=== PATIENT | male | born 1995 | race Caucasian/White ===

== ENCOUNTER 2017-05-16 14:42 | Emergency (ER) ==
[2017-05-16 14:45] VITALS: BP 136/49; TEMP 97.7; BMI 35.2
[2017-05-16] MEDS ORDERED: TORADOL IM STA (14:54)
--- NOTE | 2017-05-16 15:26 | CT ---
Exam: CT of the pelvis without intravenous contrast. Comparison: Abdomen x-ray performed on 03/02/2015. Reason for exam: Pain. FINDINGS: Image interpretation is somewhat limited by the lack of intravenous contrast. The appendix is been removed. No inflammatory changes are seen within the pelvic fat. There is no pelvic free fluid or intra-abdominal free air. The osseous structures are unremarkable. There are bilateral enlarged femoral lymph nodes measuring up to 1.5 cm in the short axis. Inflamma tory changes are seen in the subcutaneous fat of the left groin on axial image number 49. Impression: 1. Focus of subcutaneous inflammation/infiltration in the left groin on axial image number 49 . Rec ommend direct visualization for correlation. 2. Enlarged femoral lymph nodes measuring up to 1.5 cm. 3. The osseous structures are unremarkable. Imaging findings were discussed directly with the ordering physician at 1522 hours on 05/12/2017.
--- NOTE | 2017-05-16 15:38 | US ---
EXAM: Ultrasound venous Doppler unilateral lower extremity HISTORY: Pain and tenderness, redness COMPARISON: None TECHNIQUE: Venous duplex ultrasound of the right lower extremity was performed using color, harp-sc gregg, and Doppler flow imaging. FINDINGS: There is normal color flow and harp scale appearance of the right common femoral, greater saphenous, profunda femoral, femoral, popliteal, peroneal, posterior tibial, and anterior tibial ve ins without evidence of intraluminal thrombus. Compression and augmentation is normal. IMPRESSION: No right lower extremity deep venous thrombosis.
--- NOTE | 2017-05-16 16:30 | ED.PDOC ---
General ED Provider: Dr. 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 Denies: Swelling, Bruising, Fever, Weakness, Dizziness, Syncope, Abdominal pain, Knee pain Related History: Reports: Similar episode Able to Bear Weight: Yes Septic Arthritis Risk Factors: Reports: None Related Surgical History: Reports: None Tenderness: Present: Right (groin) Differential Diagnoses: Arthritis, Sprain, Strain, Other (insect bite) Review of Systems - Review Of Systems Constitutional: Reports: No symptoms Eyes: Reports: No symptoms Ears, Nose, Mouth, Throat: Reports: No symptoms Respiratory: Reports: No symptoms Cardiac: Reports: No symptoms GI: Reports: No symptoms : Reports: No symptoms Musculoskeletal: Reports: Other (right groin pain) Skin: Reports: No symptoms Neurological: Reports: No symptoms Endocrine: Reports: No symptoms Hematologic/Lymphatic: Reports: No symptoms All Other Systems: Reviewed and Negative Past Medical History - Past Medical History Previously Healthy: Yes Endocrine: Reports: None Cardiovascular: Reports: None Respiratory: Reports: None Hematological: Reports: None Gastrointestinal: Reports: None Genitourinary: Reports: None Neuro/Psych: Reports: None Musculoskeletal: Reports: None Cancer: Reports: None - Surgical History General Surgical History: Reports: None - Family History Family History: Reports: None - Social History Smoking Status: Never smoker Hx Substance Use: No Alcohol Screening: None Physical Exam - Physical Exam Appearance: Well-appearing, No pain distress, Well-nourished Eyes: ARACELI, EOMI, Conjunctiva clear ENT: Ears normal, Nose normal, Oropharynx normal Respiratory: Airway patent, Breath sounds clear, Breath sounds equal, Respirations nonlabored Cardiovascular: RRR, Pulses normal, No rub, No murmur GI/: Soft, Nontender, No masses, Bowel sounds normal, No Organomegaly Musculoskeletal: Normal strength (please refer to photos from same area ), ROM intact Skin: Warm, Dry, Normal color Neurological: Sensation intact, Motor intact, Reflexes intact, Cranial nerves intact, Alert, Oriented Psychiatric: Affect appropriate, Mood appropriate Critical Care Note - Critical Care Note Total Time (mins): 0 Course - Course Orders, Labs, Meds: Orders Category Date Time Status Ketorolac Tromethamine [Toradol] MEDS 05/16/17 14:54 Discontinued 60 mg IM ONCE STA CT PELVIS W/O CONTRAST Stat RADS 05/16/17 14:53 Completed U/S VENOUS SCAN RT. LEG Stat RADS 05/16/17 14:53 Completed Medications Discontinued Medications Generic Name Dose Route Start Last Admin Trade Name Freq PRN Reason Stop Dose Admin Ketorolac Tromethamine 60 mg 05/16/17 14:54 05/16/17 15:26 Toradol IM 05/16/17 14:55 60 mg ONCE STA Administration Vital Signs: Temp Pulse Resp BP Pulse Ox 05/16/17 14:43 97.7 F 65 18 136/49 L 96 Departure - Departure Time of Disposition: 16:31 (with billy at bedside explained to pt/family hat pt has some enlarged nodes on the left side since left side .pt must follow up with [facility]) Disposition: HOME SELF-CARE Discharge Problem: Right groin pain Instructions: Groin Pain (ED) Condition: Good Pt referred to PMD for follow-up: No Additional Instructions: Please call your Family Physician as soon as possible to schedule a follow-up appointment. Allergies/Adverse Reactions: Allergies No Known Allergies Allergy (Verified 05/16/17 14:45) Home Medications: Ambulatory Orders 1 [No Reported Medications] 03/02/15
== END 2017-05-16 16:40 | disposition home or self-care (01) ==
LOC: ED 14:42
DX: R10.31 Right lower quadrant pain (principal); R59.0 Localized enlarged lymph nodes
CPT/HCPCS: 96372; 99282

== ENCOUNTER 2017-05-26 21:01 | Emergency (ER) ==
[2017-05-26 21:14] VITALS: BMI 34.8
[2017-05-26] MEDS ORDERED: TORADOL IM STA (21:41)
--- NOTE | 2017-05-26 22:17 | CT ---
EXAM: CT head without contrast 05/26/2017 Sagittal and coronal reformatted images obtained HISTORY: Headache COMPARISON: 02/17/2008 FINDINGS: There is no evidence of intracranial hemorrhage. The midline is maintained. There is no hydrocephalus. No cerebellar tonsillar ectopia. Evaluation of the calvarium shows no fracture. The mastoid air cells are normally pneumatized. IMPRESSION: No acute intracranial abnormality.
--- NOTE | 2017-05-26 22:18 | CT ---
EXAM: CT cervical spine without intravenous contrast 05/26/2017. Sagittal and coronal reformatted images obtained HISTORY: Fall. Neck pain COMPARISON: None. FINDINGS: Normal anatomic alignment is maintained. Vertebral bodies appear intact without fracture . The facet joints align normally. The prevertebral soft tissues are within normal limits There is no evidence of acute fracture or subluxation at any level. IMPRESSION: No acute osseous abnormality of the cervical spine.
--- NOTE | 2017-05-26 22:21 | CT ---
EXAM: CT of the lumbar spine without contrast. HISTORY: Injury. PROCEDURE: Contiguous axial CT images of the lumbar spine without contrast with coronal and sagitta l reformats. FINDINGS: Comparison made with MRI lumbar spine of 07/25/2012. There is normal alignment of the lum bar vertebral bodies and facets. There are stable chronic anterior wedging deformities of the T12 a nd L1 vertebral bodies. No evidence of acute fracture in the lumbar spine. There are degenerative erosions involving the endplates at T12 and multiple levels of the lumbar spine. Impression: No evidence of acute fracture. Stable chronic anterior wedging deformities of the T12 and L1 vertebral bodies. Normal alignment of the lumbar spine with degenerative changes as described.
[2017-05-26 22:34] VITALS: BP 129/54; TEMP 98.8
--- NOTE | 2017-05-26 22:35 | ED.PDOC ---
General ED Provider: Dr. TIFFANIE MCLEOD Chief Complaint: Fall Stated Complaint: Patient states that he fell in the [employer] [place]. Landed on the left hip injuring the neck. Now has a headache lower back pain and hip pain. Also Complaint of numbness and tingling of the both hands and tingling on the left foot. States has severe pain. Time Seen by Physician: 21:00 Mode of Arrival: Walk-In Information Source: Patient Exam Limitations: No limitations Primary Care Provider: SOPHIA FERRARO Nursing and Triage Documentation Reviewed and Agree: Yes Review of Systems - Review Of Systems Constitutional: Reports: No symptoms Eyes: Reports: No symptoms Ears, Nose, Mouth, Throat: Reports: No symptoms Respiratory: Reports: No symptoms Cardiac: Reports: No symptoms GI: Reports: No symptoms : Reports: No symptoms Musculoskeletal: Reports: Back pain, Joint pain, Muscle pain, Muscle stiffness Skin: Reports: No symptoms Neurological: Reports: Anxiety Endocrine: Reports: No symptoms Hematologic/Lymphatic: Reports: No symptoms All Other Systems: Reviewed and Negative Past Medical History - Past Medical History Previously Healthy: Yes Endocrine: Reports: None Cardiovascular: Reports: None Respiratory: Reports: None Hematological: Reports: None Gastrointestinal: Reports: None Genitourinary: Reports: Kidney stones Neuro/Psych: Reports: None Musculoskeletal: Reports: None Cancer: Reports: None - Surgical History General Surgical History: Reports: None - Family History Family History: Reports: None - Social History Smoking Status: Never smoker Hx Substance Use: No Alcohol Screening: None Lives: With family - Immunizations Tetanus Shot up to Date: Yes Physical Exam - Physical Exam Appearance: Ill-appearing, Obese Pain Distress: Severe Eyes: ARACELI, EOMI, Conjunctiva clear ENT: Ears normal, Nose normal, Oropharynx normal Neck: Supple Respiratory: Airway patent, Breath sounds clear, Breath sounds equal, Respirations nonlabored Cardiovascular: RRR, Pulses normal, No rub, No murmur GI/: Soft, Nontender, No masses, Bowel sounds normal, No Organomegaly Musculoskeletal: Limited ROM Skin: Warm, Dry, Normal color Neurological: Sensation intact, Motor intact, Reflexes intact, Cranial nerves intact, Alert, Oriented Psychiatric: Anxious Critical Care Note - Critical Care Note Total Time (mins): 0 Course - Course Orders, Labs, Meds: Orders Category Date Time Status Ketorolac Tromethamine [Toradol] MEDS 05/26/17 21:41 Discontinued 60 mg IM ONCE STA CT CERVICAL SPINE W/O CONTRAST Stat RADS 05/26/17 21:[address] HEAD W/O CONTRAST Stat RADS 05/26/17 21:[address] LUMBAR SPINE W/O CONTRAST Stat RADS 05/26/17 21:41 Completed Medications Discontinued Medications Generic Name Dose Route Start Last Admin Trade Name Freq PRN Reason Stop Dose Admin Ketorolac Tromethamine 60 mg 05/26/17 21:41 05/26/17 22:06 Toradol IM 05/26/17 21:42 60 mg ONCE STA Administration Vital Signs: Temp Pulse Resp BP Pulse Ox 05/26/17 22:30 98.8 F 72 18 129/54 L 98 05/26/17 21:02 99.3 F 79 18 146/70 H 98 Departure - Departure Time of Disposition: 22:45 Disposition: HOME SELF-CARE Discharge Problem: Falls, Backache, Lower back pain, Muscle ache, Neck arthralgia Instructions: Low Back Strain (ED), Lumbar Radiculopathy (ED), Musculoskeletal Pain (ED) Condition: Fair Pt referred to PMD for follow-up: Yes Additional Instructions: rest Follow up with PCP in 3 days take medications as prescribed. Prescriptions: Ibuprofen [Motrin] 600 mg PO Q6H PRN #30 tablet PRN Reason: Analgesia Tramadol HCl [Ultram] 50 mg PO Q6H PRN #14 tablet PRN Reason: Severe Pain Allergies/Adverse Reactions: Allergies No Known Allergies Allergy (Verified 05/26/17 21:12) Home Medications: Ambulatory Orders Ibuprofen [Motrin] 600 mg PO Q6H PRN #30 tablet 05/26/17 Tramadol HCl [Ultram] 50 mg PO Q6H PRN #14 tablet 05/26/17 Disposition Discussed With: Patient
== END 2017-05-26 23:22 | disposition home or self-care (01) ==
LOC: ED 21:01
DX: M54.5 Low back pain (principal); M54.2 Cervicalgia; M79.1 Myalgia; M25.552 Pain in left hip; R20.0 Anesthesia of skin; R51 Headache; W01.0XXA Fall on same level from slipping, tripping and stumbling without subsequent striking against object, initial encounter; Y92.512 Supermarket, store or market as the place of occurrence of the external cause
CPT/HCPCS: 96372; 99283